=== PATIENT | female | born 1995 | race Caucasian/White ===

== ENCOUNTER 2022-05-21 15:56 | Outpatient (CLI) | payer BC | END 2022-05-21 15:57 | disposition home or self-care (01) | LOC: BICRAD 15:56 | PROVIDERS: ATTEND Internal Medicine Gastroenterology | DX: K59.09 Other constipation (principal); R14.0 Abdominal distension (gaseous) | CPT/HCPCS: 74018 ==

== ENCOUNTER 2022-05-25 12:22 | Outpatient (CLI) | payer BC | END 2022-05-25 12:23 | disposition home or self-care (01) | LOC: BICRAD 12:22 | PROVIDERS: ATTEND Internal Medicine Gastroenterology | DX: K59.09 Other constipation (principal); R14.0 Abdominal distension (gaseous) | CPT/HCPCS: 74018 ==